=== PATIENT | female | born 1995 | race Caucasian/White ===

== ENCOUNTER 2018-10-16 17:20 | Emergency (ER) | payer MEDICAID ==
--- NOTE | 2018-10-16 18:13 | ED Physician Chart ---
ED Chief Complaint/HPI - Patient Information Date Seen:: 10/16/18 Time Seen:: 17:50 Chief Complaint:: painful swelling over sacrum History of Present Illness:: Patient had spontaneous onset about one week ago of pain over her sacrum. Symptoms initially improved then became much worse yesterday. She has had an abscess drained at the same 3 times previously. Allergies:: Allergies Allergy/AdvReac Type Severity Reaction Status Date / Time Penicillins [PCN] Allergy Verified 10/16/18 17:37 Sulfa (Sulfonamide Allergy Verified 10/16/18 17:37 Antibiotics) Vitals:: Vital Signs - 8 hr 10/16/18 17:38 Temp 98.1 F HR 110 RR 18 BP 145/71 O2 Sat % 98 Historian:: Patient ED Review of Systems - Review of Systems General/Constitutional: No fever, No chills Skin: Skin lesions Head: No headache Eyes: No loss of vision ENT: No earache Neck: No neck pain Cardio Vascular: No chest pain, No palpitations Pulmonary: No SOB GI: No nausea, No vomiting, No diarrhea G/U: No dysuria Musculoskeletal: No bone or joint pain Endocrine: No polyuria Psychiatric: Prior psych history Hematopoietic: No bruising Allergic/Immuno: No urticaria Neurological: No syncope ED Past Medical History - Past Medical History Past Medical History: Other (polycystic ovarian syndrome and panic attacks) Family History: HTN Social History: Non Smoker, No Alcohol Surgical History: None Psychiatricy History: Other (panic attacks) Medication: None ED Physical Exam - Physical Examination General/Constitutional: Well-developed, well-nourished, Alert, No distress Head: Atraumatic Eyes: Lids, conjuctiva normal Other Skin comments:: 4 cm in diameter lumpy induration centered over superior end buttocks crease ED Assessment - Procedures Procedures:: Skin cleansed with Betadine solution; 1% Xylocaine for local anesthesia; with a number 15 scalpel a 3 mm incision was made on the midline at the center of the induration; about 20 mL of light hawk and dark hawk pus came out; more 1% Xylocaine was used for local anesthesia and the incision was then enlarged to about 8 mm; bilateral another 5 mL of pus came out; abscess cavity irrigated with normal saline; abscess cavity packed with 1/4 inch iodoform gauze; dressing with 4 x 4's and applied; instructed to remove the iodoform gauze in 48 hours. Suggested patient follow up with a general surgeon for definitive care so that the pilonidal cyst does not recur. ED Septic Shock - . Is Septic Shock (SBP<90, OR Lactate>4 mmol\L) present?: No - <6hrs of presentation: Vital Signs: Vital Signs - 8 hr 10/16/18 17:38 Temp 98.1 F HR 110 RR 18 BP 145/71 O2 Sat % 98 ED Reassessment (Disposition) - Reassessment Reassessment Condition:: Improved - Diagnosis Diagnosis:: Pilonidal cyst and abscess - Aftercare/Follow up Instructions Aftercare/Follow-Up Instructions:: Refer to Discharge Instructions Medication Prescribed:: Cipro 500 mg twice a day for 5 days - Patient Disposition Discharge/Transfer:: Home Condition at Disposition:: Stable, Improved
== END 2018-10-16 18:34 | disposition home or self-care (01) ==
LOC: ER 17:20
DX: L05.01 Pilonidal cyst with abscess (principal); Z88.0 Allergy status to penicillin; Z88.2 Allergy status to sulfonamides
CPT/HCPCS: 81025-TC; Z7610